=== PATIENT | female | born 1950 | race Caucasian/White ===

== ENCOUNTER 2018-02-09 13:18 | Emergency (ER) | payer MEDICARE, OTHER ==
[~2018-02-09] VITALS: Ht 162.6 cm; Wt 86.2 kg
--- NOTE | 2018-02-09 13:25 | NUR ---
PT BIB RA. COMP OF SUFFERING A GLA. NO KO. AMBULATORY W,STEADY GAIT. NO SOB NOTED. AWAITING MD ERICKSON.
[2018-02-09] MEDS ORDERED: KETOROLAC TROMETHAMINE INJ 30 MG/ML VIAL ONE (13:41)
[2018-02-09] MEDS ORDERED: KETOROLAC TROMETHAMINE INJ 30 MG/ML VIAL IM ONE (14:00)
[2018-02-09] MEDS ORDERED: KETOROLAC TROMETHAMINE INJ 60 MG/2 ML VIAL IM ONE (14:00)
[2018-02-09] MEDS ORDERED: oxyCODONE/APAP (5/325 MG) 1 UDTAB TABLET PO ONE (14:00)
[2018-02-09 14:49] VITALS: BP 154/96
== END 2018-02-09 14:49 | disposition home or self-care (01) ==
LOC: ER 13:20
DX: S43.491A Other sprain of right shoulder joint, initial encounter (principal); S80.01XA Contusion of right knee, initial encounter; E11.9 Type 2 diabetes mellitus without complications; I10 Essential (primary) hypertension; W01.0XXA Fall on same level from slipping, tripping and stumbling without subsequent striking against object, initial encounter; Y93.89 Activity, other specified; Y92.89 Other specified places as the place of occurrence of the external cause; Y99.8 Other external cause status
CPT/HCPCS: 71045-TC; 73030-TC; 73060-TC; 73560-TC; A4606; J1885; Z7610